=== PATIENT | female | born 1965 | race Caucasian/White ===

== ENCOUNTER 2019-10-15 15:30 | Outpatient (CLI) | payer BC, SELFPAY ==
--- NOTE | ~2019-10-15 | MM_ITS ---
EXAMINATION: MM screening susan BI w quin HISTORY: Screening mammogram TECHNIQUE: Craniocaudal and mediolateral oblique 3-D tomosynthesis images were obtained and synthetic 2-D images were generated. CAD analysis was submitted and interpreted. COMPARISON: 04/13/2018 diagnostic left digital mammogram and left Limited breast ultrasound 04/09/2018, 01/04/2017, 04/21/2015 lateral digital screening mammogram examinations BREAST PARENCHYMAL COMPOSITION: There are scattered areas of fibroglandular density. FINDINGS: There is no evidence of suspicious mass, calcification, or architectural distortion to sugg est malignancy in either breast. There has been no suspicious interval change. IMPRESSION: 1. No mammographic evidence of malignancy. 2. Recommend routine screening mammography in one year. BI-RADS Category 1: Negative Reviewed, dictated and finalized at location A. T CUTTER
== END 2019-10-15 15:31 | disposition home or self-care (01) ==
PROVIDERS: PCP Family Medicine; Visit Provider Obstetrics & Gynecology
DX: Z12.31 Encounter for screening mammogram for malignant neoplasm of breast (principal)
CPT/HCPCS: 77063; 77067

== ENCOUNTER → 2020-12-23 09:12 | Outpatient (CLI) | payer BC, SELFPAY ==
[2020-12-23 18:26] LABS: SARS-CoV-2 RNA PCR Negative
== END ==
PROVIDERS: PCP Internal Medicine; Visit Provider Internal Medicine
DX: Z20.822 Contact with and (suspected) exposure to COVID-19 (principal)
CPT/HCPCS: C9803; U0003; U0005

== ENCOUNTER 2021-01-15 12:42 | Outpatient (CLI) | payer BC, SELFPAY | END 2021-01-15 12:43 | disposition home or self-care (01) | LOC: ANHLAB 12:44 | PROVIDERS: PCP Internal Medicine; Visit Provider Internal Medicine | DX: Z86.16 Personal history of COVID-19 (principal) | CPT/HCPCS: 36415; 86769 ==

== ENCOUNTER 2021-06-23 14:58 | Outpatient (CLI) | payer BC, SELFPAY ==
--- NOTE | ~2021-06-23 | MM_ITS ---
EXAMINATION: MM screening susan BI w quin HISTORY: Screening mammogram TECHNIQUE: Craniocaudal and mediolateral oblique 3-D tomosynthesis images were obtained and synthetic 2-D images were generated. CAD analysis was submitted and interpreted. COMPARISON: bilateral digital screening mammogram 04/13/2018 diagnostic left mammogram and limited left breast ultrasound 04/09/2018 bilateral digital screening mammogram BREAST PARENCHYMAL COMPOSITION: There are scattered areas of fibroglandular density. FINDINGS: There is no evidence of suspicious mass, calcification, or architectural distortion to sugg est malignancy in either breast. There has been no suspicious interval change. IMPRESSION: 1. No mammographic evidence of malignancy. 2. Recommend routine screening mammography in one year. BI-RADS Category 1: Negative.. Reviewed, dictated and finalized at location A.
== END 2021-06-23 14:59 | disposition home or self-care (01) ==
LOC: ANHIMG 15:01
PROVIDERS: PCP Internal Medicine; Visit Provider Obstetrics & Gynecology
DX: Z12.31 Encounter for screening mammogram for malignant neoplasm of breast (principal)
CPT/HCPCS: 77063; 77067

== ENCOUNTER 2023-03-21 10:12 | Outpatient (CLI) | payer BC, SELFPAY ==
[2023-03-22 05:25] LABS: Free T4 Free Thyroxine 1.64 ng/mL (0.78-2.19); Vitamin D 25 Hydroxy 26.3 ng/mL
== END 2023-03-21 10:13 | disposition home or self-care (01) ==
LOC: ANHWCLAB 10:13
PROVIDERS: PCP Internal Medicine; Visit Provider Internal Medicine Endocrinology, Diabetes & Metabolism
DX: E03.9 Hypothyroidism, unspecified (principal); E55.9 Vitamin D deficiency, unspecified
CPT/HCPCS: 36415; 82306; 84439; 84443

== ENCOUNTER 2023-06-13 07:53 | Outpatient (CLI) | payer BC, SELFPAY ==
--- NOTE | ~2023-06-13 | MM_ITS ---
EXAMINATION: MM screening susan BI w quin HISTORY: Screening mammogram TECHNIQUE: Craniocaudal and mediolateral oblique 3-D tomosynthesis images were obtained and synthetic 2-D images were generated. CAD analysis was submitted and interpreted. COMPARISON: 06/23/2021, 10/15/2019 bilateral screening mammogram examinations BREAST PARENCHYMAL COMPOSITION: There are scattered areas of fibroglandular density. FINDINGS: There is no evidence of suspicious mass, calcification, or architectural distortion to sugg est malignancy in either breast. There has been no suspicious interval change. IMPRESSION: 1. No mammographic evidence of malignancy. 2. Recommend routine screening mammography in one year. BI-RADS Category 1: Negative Reviewed, dictated and finalized at location A.
== END 2023-06-13 07:54 | disposition home or self-care (01) ==
PROVIDERS: PCP Family Medicine; Visit Provider Obstetrics & Gynecology
DX: Z12.31 Encounter for screening mammogram for malignant neoplasm of breast (principal)
CPT/HCPCS: 77063; 77067

== ENCOUNTER 2023-06-26 15:30 | Outpatient (RCR) | payer BC, SELFPAY ==
--- NOTE | 2023-05-29 15:09 | OPREHPOC ---
Outpatient Therapy Plan of Care This is a Multidisciplinary Plan of Care that may contain components documented by all disciplines (PT, OT, and ST.) PT Problem 1 PT Problem #1 Knowledge Deficit PT Goal 1 Goal Pt to be IND with issued HEP Target Visit 8 PT Problem 2 PT Problem #2 Pain PT Goal 1 Goal Pt to report neck pain no greater than 3/10 in the last week Target Visit 8 PT Goal 2 Goal Pt to report 75% improvement in overall symptoms Target Visit 8 PT Problem 3 PT Problem #3 Impaired Strength PT Goal 1 Goal Pt to be able to lift her grandkids and clean her house without an increase in pain the next day. Target Visit 8 PT Goal 2 Goal Pt to be able to lift 5lb overhead without an increase in pain Target Visit 8 PT Problem 4 PT Problem #4 Impaired Range of Motion PT Goal 1 Goal Pt to increase jovany lateral flexion ROM to 30 deg Target Visit 8 PT Goal 2 Goal Pt to increase R rotation to 55 deg to be equal to the L side Target Visit 8
--- NOTE | 2023-05-29 15:09 | PTOPEVAL1 ---
Assessment and note entered by Karol Molina, PT, DPT Evaluation Information Assessment Status Evaluation Diagnosis L muscle strain Onset 8 months Subjective Information Pt states about 8 months ago she started to get a throbbing neck pain that goes up to her head and down into the front of her chest. She states it is more of a throbbing achy pain. She has been going to the chiropractor without any relief. 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 Reported Pain Level Pain Score 0: Self Report Assessment PT Clinical Summary Angela presents to therapy today for her initial evaluation with a diagnosis of a muscle strain. Today she demonstrates decreased active and passive cervical ROM jovany L>R d/t upper trap length restrictions. She demonstrates tenderness to palpation throughout the upper trap and serratus region. She demonstrates a forwards head with slightly rounded shoulders in sitting. Skilled therapy services are indicated to improve soft tissue mobility, to improve cervical ROM, to manage pain, and to return to PLOF. Plan of Care Interventions Electrical Stimulation,Hot Pack/Cold Pack,Manual Therapy,Neuro Re-education,Patient/Caregiver Educati,Therapeutic Activities,Therapeutic Exercise PT Services Indicated Yes Treatment Frequency and 2x/wk for 8 visits Duration These treatments will address the objective and functional deficits as defined above. The patient will be advanced safely and appropriately in order for the patient to progress towards his/her prior level of function. Additional exercises will be introduced and as well as a comprehensive home exercise program upon discharge, if needed, ?to ensure carryover of functional gains achieved in the clinic. This treatment plan has been reviewed and agreement upon by the patient.
--- NOTE | 2023-06-02 08:41 | PCPTNOTE ---
Patient called & cancelled scheduled appointment this date due to having to work.
--- NOTE | 2023-06-21 08:02 | PCPTNOTE ---
Patient canceled appointment June 20.
--- NOTE | 2023-06-26 15:41 | PTOPDC ---
Assessment and note entered by Karol Molina, PT, DPT Evaluation Information Assessment Status Discharge Diagnosis L muscle strain Onset 8 months Subjective Information Pt states her neck is feeling really good. She states she has no limitations and nothing that bothers her to do. Pt declines any headaches and has no trouble sleeping. Reported Pain Level Pain Score 0: Self Report Assessment PT Clinical Summary Angela presents to therapy today for her progress report following 6 visits of skilled therapy with a diagnosis of a muscle strain. Today she demonstrates improvements in her cervical ROM, but motions to the R are still slightly limited. She reports no limitations, no headaches, and no pain in the last week. She no longer requires skilled therapy and will be discharged at this time.
== END 2023-07-05 13:51 | disposition home or self-care (01) ==
LOC: ANHGOSHPT 15:30
PROVIDERS: PCP Family Medicine; Visit Provider Family Medicine
DX: S46.819A Strain of other muscles, fascia and tendons at shoulder and upper arm level, unspecified arm, initial encounter (principal)
CPT/HCPCS: 97110; 97140; 97161; 97530

== ENCOUNTER 2024-09-12 15:30 | Outpatient (RCR) | payer BC, SELFPAY ==
--- NOTE | 2024-07-31 10:15 | OPREHPOC ---
Outpatient Therapy Plan of Care This is a Multidisciplinary Plan of Care that may contain components documented by all disciplines (PT, OT, and ST.) PT Problem 1 PT Problem #1 Knowledge Deficit PT Goal 1 Goal / Goal Update Pt to be IND with issued HEP Target Visit 10 PT Problem 2 PT Problem #2 Pain PT Goal 1 Goal / Goal Update 1. Pt to report neck pain no greater than 3/10 in the last week. 2. Pt to report 75% improvement in overall symptoms. Target Visit 10 PT Problem 3 PT Problem #3 Impaired Range of Motion PT Goal 1 Goal / Goal Update 1. Pt to increase jovany cervical lateral flexion to 25 deg 2. Pt to increase jovany cervical rotation to 60 deg to improve ease with driving Target Visit 10
--- NOTE | 2024-07-31 10:16 | PTOPEVAL1 ---
Assessment and note entered by Karol Molina, PT, DPT Evaluation Information Assessment Status Evaluation Diagnosis L upper trap strain ICD-10 Condition Codes (PT) Cervicalgia M54.2 Subjective Information Pt states she has a chronic history of L shoulder and neck pain. 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 States her neck, shoulder, or ribs will pop out and she has to go to a chiropractor to realign this. States at times she will get a ringing sensation in her ears. Reported Pain Level Pain Score 4: Self Report Pain Score 4: Self Report Assessment PT Clinical Summary Pt presents to therapy today for her initial evaluation with a diagnosis of a L upper trap strain. Today she demonstrates decreased ROM in all planes of motion. She demosntates increased soft tissue density in her upper trap and into her suboccipitals. She also demonstrates decreased scapular stability with resistance and a forward and rounded posture. Skilled therapy services are indicated to address the deficits noted above, to manage pain, and to return to prior level of function. Plan of Care Interventions Electrical Stimulation,Hot Pack/Cold Pack,Manual Therapy,Neuro Re-education,Patient/Caregiver Educati,Therapeutic Activities,Therapeutic Exercise,Other Other Interventions dry needling PT Services Indicated Yes Treatment Frequency and 2x/wk for 10 visits Duration These treatments will address the objective and functional deficits as defined above. The patient will be advanced safely and appropriately in order for the patient to progress towards his/her prior level of function. Additional exercises will be introduced and as well as a comprehensive home exercise program upon discharge, if needed, ?to ensure carryover of functional gains achieved in the clinic. This treatment plan has been reviewed and agreement upon by the patient.
--- NOTE | 2024-09-12 16:13 | OPREHPOC ---
Outpatient Therapy Plan of Care This is a Multidisciplinary Plan of Care that may contain components documented by all disciplines (PT, OT, and ST.) PT Problem 1 PT Problem #1 Knowledge Deficit PT Goal 1 Goal / Goal Update Pt to be IND with issued HEP Target Visit 10 Progress Met PT Problem 2 PT Problem #2 Pain PT Goal 1 Goal / Goal Update 1. Pt to report neck pain no greater than 3/10 in the last week. 2. Pt to report 75% improvement in overall symptoms. 09/12/24: 1. progressing, 01/11 2. met, reports 80-90% improvement Target Visit 10 Progress Partially Met PT Problem 3 PT Problem #3 Impaired Range of Motion PT Goal 1 Goal / Goal Update 1. Pt to increase jovany cervical lateral flexion to 25 deg 2. Pt to increase jovany cervical rotation to 60 deg to improve ease with driving 09/12/24: 1-2. progressing Target Visit 10 Progress Partially Met
--- NOTE | 2024-09-12 16:14 | PTOPDC ---
Assessment and note entered by Karol Molina, PT, DPT Evaluation Information Assessment Status Discharge Diagnosis L upper trap strain ICD-10 Condition Codes (PT) Cervicalgia M54.2 Subjective Information Pt states she feels like she is doing a lot better , states her neck is not popping anymore and she is not getting any more ringing in the ears. States its worst it is an annoying throb in the back of her neck. She states her exercises seem to help with the pain. Reports her pain frequency and intensity has decreased, reports 80-90% improvement. Reported Pain Level Pain Score 0: Self Report Pain Score 0: Self Report Assessment PT Clinical Summary Pt has completed 7 visits of skilled therapy to treat her neck pain. Her neck, thoracic, and shoulder mobility has improved. She has met a majority of her therapy goals and no longer requires skilled services at this time. Her HEP was progressed. She will be d/c'ed at this time.
== END 2024-09-13 12:41 | disposition home or self-care (01) ==
LOC: ANHGOSHPT 15:30
PROVIDERS: PCP Family Medicine; Visit Provider Nurse Practitioner Family
DX: S46.812D Strain of other muscles, fascia and tendons at shoulder and upper arm level, left arm, subsequent encounter (principal)
CPT/HCPCS: 97014; 97110; 97140; 97161; 97530; G0283

== ENCOUNTER 2024-12-23 14:36 | Outpatient (CLI) | payer BC, SELFPAY ==
--- NOTE | ~2024-12-23 | MM_ITS ---
EXAMINATION: MM screening [facility] BI w quin HISTORY: Screening TECHNIQUE: Craniocaudal and mediolateral oblique 3-D tomosynthesis images were obtained and synthetic 2-D images were generated. CAD analysis was submitted and interpreted. COMPARISON: 06/13/2023 and dating back to 04/09/2018 BREAST PARENCHYMAL COMPOSITION: There are scattered areas of fibroglandular density. FINDINGS: Punctate calcifications are detected bilaterally, stable and benign in appearance. Stable parenchymal pattern without suspicious microcalcifications, architectural distortion, discrete masses or significant asymmetry. IMPRESSION: 1. No mammographic evidence of malignancy. 2. Recommend routine screening mammography in one year. BI-RADS Category 2: Benign finding(s). Reviewed, dictated and finalized at location A.
--- OUTSIDE RECORDS SUMMARY | 2024-12-23 16:33 | XMS_ITS | Encounter Summary ---
Author Organization [facility] Address [address] [place] [address] Care Team Providers Care Line Mechanic Name Role Phone Omi Jeffery MD Primary Care Provider [phone] Encounter Details Date Type Department Care Team (Late st Contact Info) Description 05/25/[address] 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 Received: 05/25/2022 04:14 PM Pathologist: Ana Toledo MD Specimen: Skin, left post parietal scalp 12:51 PM CDT DERMATOPATHOLOGY LABORATORY Final Diagnosis Specimen A. SKIN, left post parietal scalp: BENIGN VERRUCOUS KERATOSIS, INFLAMED (L82.1) 12:51 PM CDT DERMATOPATHOLOGY LABORATORY Clinical History R/O ISK, BCC,SCC 12:51 PM CDT DERMATOPATHOLOGY LABORATORY Gross Description Specimen A: Received is one formalin filled container labeled with the patient's name and designated left post parietal scalp. The specimen consists of a shave biopsy measuring 10x8x4 mm, bisected. Jar 0. 12:51 PM CDT DERMATOPATHOLOGY LABORATORY Microscopic Description Specimen A. SKIN, left post parietal scalp: Sections show hyperkeratosis, papillomatosis, hypergranulosis, and acanthosis. Inflammatory cells are present within the dermis. These histological findings can be seen in a verruca vulgaris or a seborrheic keratosis. 12:51 PM CDT DERMATOPATHOLOGY LABORATORY Disclaimer An external and internal positive and negative controls are appropriate for the histochemical, immunohistochemical and immunofluorescence stain(s) in this case (if any), except where stated explicitly. The performance characteristics of the stain(s) cited in this report were developed and its performance characteristic determined by the Dermatopathology Laboratory at [facility], directed by Dr. Srinivas Holguin. These tests need not be, and therefore are not, approved by the [place] Food and Drug Administration. The tests are used for clinical purposes. Billing Codes Specimen Charges Stain Charges 33049 1 2 12:51 PM CDT DERMATOPATHOLOGY LABORATORY Embedded Images 12:51 PM CDT DERMATOPATHOLOGY LABORATORY Pathology/Cytolog y TISSUE SPECIMEN FROM SKIN / Unknown 05/24/2022 05/25/2022 4:14 PM CDT us Tin Faulkner MD LAB - PATHOLOGY/CYTOLOGY ORD ERABLES Final Result DERMATOPATHOLOGY LABORATORY [facility] - Department of Dermatology [address], [address] [phone] documented in this encounter Visit Diagnoses Not on filedocumented in this encounter Care Teams Line Mechanic Relationship Specialty Start Date End Date Omi Jeffery MD [address] [place] [address] PCP - General 12/24/15 documented as of this encounter
--- OUTSIDE RECORDS SUMMARY | 2024-12-23 16:33 | XMS_ITS | Clinical Summary ---
Author Organization [facility] Address [address] [place] [address] Phone Care Team Providers Care Reservation Agent Name Role Phone Home Jean MD Primary Care Provider [phone] Allergies Active Allergy Reactions Criticality Noted Date Comments Aspirin Penicillins Medications Synthroid 112 mcg tablet Take 1 tablet (112 mcg total) by mouth neurocritical care physician before breakfast 3 Active EstroGel 1.25 gram/actuation topical gel 3 Active ergocalciferol, vitamin D2, (VITAMIN D2 ORAL) Take by mouth Active Active Problems Problem Noted Date Diagnosed Date Sore throat 11/01/2024 Assessment & Plan (11/01/2024 11:57 AM CLIENT BUSINESS MANAGER): States she had symptoms of runny nose, scratchy throat a few weeks ago. Never had any fevers, cough or chills. Mild sore throat with some postnasal drainage for the last few days. Sensation of ear fullness. Mild erythema on exam, no exudate. Prefers to avoid strep testing today. Discussed use of flonase nasal spray and acetaminophen as needed. Can use salt water gargles. Follow up if no improvement or if experiencing any new or worsening symptoms. Left ear pain 11/01/2024 Assessment & Plan (11/01/2024 11:57 AM CLIENT BUSINESS MANAGER): No abnormal findings on exam. See discussion above Annual physical exam 08/13/2024 Assessment & Plan (08/13/2024 3:14 PM CLIENT BUSINESS MANAGER): In regard to health maintenance, Colonoscopy referral placed Mammogram folows with SENIOR BUSINESS DEVELOPMENT ANALYST [employer] [facility] Influenza vaccine declines Shingrix vaccine recommended Eat a healthy diet: focus on lean meats and proteins, more fruits, vegetables and whole grains and low in sugars and fats. Limit red meat and avoid processed meat. Maintain a healthy weight; avoid being overweight. Aim for a normal body mass index (BMI) of 18.5-24.9. Help learning to eat healthier, we can set up appointment with die tester/screen printing machine operator. Have an active lifestyle, strive for 30 minutes of moderate exercise 5 times a week and strength or resistance training at least twice a week. Use broad-spectrum (UVA+UVB) sunscreen with SPF 30 or greater, is water resistant, limit time spent in the sun (10 am-4pm), wear hat, wear UV protective clothing, wear sunglasses. Never use a tanning bed. Skin that was irradiated may be more sensitive over your lifetime. Do not smoke or chew tobacco; participate in a smoking cessation program. Limit alcohol intake, 1 drink per day for a woman and 2 drinks per day for a man. Vitamin D deficiency 08/13/2024 Assessment & Plan (08/13/2024 3:25 PM CLIENT BUSINESS MANAGER): Reports stable. Following with Endocrinology. Compliant with supplement. Strain of left trapezius muscle 03/25/2024 Assessment & Plan (03/25/2024 3:01 PM CDT): Continue gentle stretching. Reviewed conservative measures. Will place referral to PT. Will monitor response. Bilateral impacted cerumen 03/25/2024 Assessment & Plan (03/25/2024 3:01 PM CDT): Canals cleared. Can try OTC Debrox. RTC for any concerns. BMI 25.0-25.9,adult 03/25/2024 Assessment & Plan (11/01/2024 11:57 AM CLIENT BUSINESS MANAGER): BMI appropriate for patient Hypothyroidism 01/18/2014 Overview (12/07/2016): HYPOTHYROIDISM NOS Assessment & Plan (08/13/2024 3:24 PM CLIENT BUSINESS MANAGER): Reports stable Following closely with endocrinology. Will continue to do so. 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/2016): NONTOX NODUL GOITER NOS Encounters Date Type Department Care Team Description 11/01/2024 11:30 AM CLIENT BUSINESS MANAGER [facility] Visit [facility] [address] [address] [place] Brooks, [place] Sore throat (Primary Dx); Left ear pain; BMI 25.0-25.9,adult from Last 3 Months Immunizations Immunization Administration Dates Next Due Influenza, Unspecified 11/01/2024(Deferr ed: Patient Refused),08/13/2024(Deferred: Patient Refused),06/04/2024(Deferred: Patient Refused),06/20/2023(Deferred: Patient Refused),06/04/2023(Deferred: Patient Refused),11/15/2022(Deferred: Patient Refused),06/04/2022(Deferred: Patient Refused),09/04/2021(Deferred: Patient Refused) Medical History Medical History Date Comments Disorder of thyroid Thyroid dise ase Family History Medical History Relation Name Comments Other Other No family histo ry of Diabetes mellitus; Thyroid disease Other Family histo ry of Thyroid disorder; Relation Name Status Comments Other Social History Tobacco Use Types Packs/Day Years Used Date Smoking Tobacco: Never Smokeless Tobacco: Never Tobacco Cessation:Counseling Given: Not Answered Alcohol Use Standard Drinks/Week Comments No 0 (1 standard drink = 0.6 oz pur e alcohol) PHQ-2 Answer Date Recorded PHQ-2 Total Score (If total score is 3 or more points, staff should administer the PHQ-9) 0 11/01/2024 Comments Unknown Sex and Gender Information Value Date Recorded Sex Assigned at Not on file Legal Sex Female 1:15 AM CLIENT BUSINESS MANAGER Gender Identity Not on file Sexual Orientation Not on file Obstetrics History Last Filed Vital Signs Vital Sign Reading Time Taken Comments Blood Pressure 110/78 11/01/2024 11:09 AM CLIENT BUSINESS MANAGER Pulse 105 11/01/2024 11:09 AM CLIENT BUSINESS MANAGER Temperature 36.8 C (98.2 F) 11/01/2024 11:09 AM CLIENT BUSINESS MANAGER Respiratory Rate 16 11/01/2024 11:09 AM CLIENT BUSINESS MANAGER Oxygen Saturation 98% 11/01/2024 11:09 AM CLIENT BUSINESS MANAGER Inhaled Oxygen Concentration - - Weight 78 kg (172 lb) 11/01/2024 11:09 AM CLIENT BUSINESS MANAGER Height 175.3 cm (5' 9.02 ) 11/01/2024 11:09 AM C Body Mass Index 25.39 11/01/2024 11:09 AM CLIENT BUSINESS MANAGER Plan of Treatment Health Maintenance Due Date Last Done Comments Breast Cancer Screening-Mammogram 1965 Cervical Cancer Screening 1965 Hepatitis C Screening 1964 DTaP/Tdap/Td Vaccine (1 - Tdap) 1975 Hepatitis B Screening 1982 Zoster Vaccine (1 of 2) 2014 Influenza Vaccine (#1) 2025 Postp oned from 05/05/2024 (Patient declined, but will receive in the future) Regular Well Visit/Exam 18-64 08/13/2025 08/13/2024 Depression Screening 11/01/2025 11/01/2024, 08/13/2024, 06/20/2023 Colon Cancer Screening-Colonoscopy 05/19/2027 05/19/2017 Pneumococcal vaccine <65 Aged Out No longer eligible based on patient's age to complete this topic Procedures Procedure Name Priority Date/Time Associated Diagnosis Comments COLONOSCOPY Routine 05/19/2017 7:45 AM CDT from Last 3 Months or Most Recently Relevant to Health Maintenance Results * Colonoscopy (05/19/2017 7:45 AM CDT) Anatomical Region Laterality Modality Other us Historical Provider ENDOSCOPY PROCEDURES Cornelia samayoa Result from Last 3 Months or Most Recently Relevant to Health Maintenance Insurance [facility] OOS Care Teams Reservation Agent Relationship Specialty Start Date End [place] [id number] PCP - General Family Medicine 06/20/23
--- OUTSIDE RECORDS SUMMARY | 2024-12-23 16:33 | XMS_ITS | Clinical Summary ---
Author Organization [facility] Address [address] [place] [address] Care Team Providers Care Cupola Man Name Role Phone Omi Jeffery MD Primary Care Provider [phone] Source Comments [facility] Location [employer],non-owned Affiliates and Associated Physician Practices is amultiple site organization consisting of ambulatory clinics and hospital sitesin [place], [place], [place]. This disclosure is being madepursuant to the Care Everywhere program and may not contain all information available regarding this patient. 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 Gender Identity Not on file Sexual Orientation Not on file Plan of Treatment Health Maintenance Due Date Last Done Comments COLOGUARD (AGES 45-75) - COL ON CA SCREENING 1964 COLON MONITORING 1964 COLONOSCOPY - COLON CA SCREENING 1964 CT COLONOGRAPHY - COLON CA SCREENING 1964 Colorectal Cancer Screening 1964 FIT - COLON CA SCREENING 1964 FLEX SIG - COLON CA SCREENING 1964 LIPID TESTING 1964 MAMMOGRAM 1964 PAP SMEAR 1964 HIV SCREENING 1979 HEPATITIS C SCREENING 09/25/1982 DTAP/TDAP/TD VACCINES (1 - Tdap) 1983 PNEUMOCOCCAL VACCINE 50+ (1 of 1 - PCV) 2014 ZOSTER VACCINE (1 of 2) 2014 COVID-19 VACCINE ( - 2023-2 5 season) 2024 DEPRESSION SCREENING 09/04/2024 INFLUENZA VACCINE (Season Ended) 2025 Respiratory Syncytial Virus (RSV) Vaccine Pt: or over 60 yrs (1 - 1-dose 75+ series) 2039 HEPATITIS B VACCINE Aged Out No longe r eligible based on patient's age to complete this topic HIB VACCINE Aged Out No longer eligi ble based on patient's age to complete this topic HPV VACCINE Aged Out No longer eligi ble based on patient's age to complete this topic MENINGOCOCCAL (Group B) VACC INE SHARED DECISION-MAKING Aged Out No longer eligibl e based on patient's age to complete this topic MENINGOCOCCAL GROUPS A/C/Y/W VACCINE Aged Out No longer eligible b ased on patient's age to complete this topic Insurance ANTHEM Care Teams Cupola Man Relationship Specialty Start Date End Date Omi Jeffery MD [address] [place] [address] PCP - General 12/24/15
--- OUTSIDE RECORDS SUMMARY | 2024-12-23 16:33 | XMS_ITS | Continuity of Care Document ---
Author Organization [facility] Address [address] [place] [address] Phone Care Team Providers Care Husker Operator Name Role Phone Dennis De DO Unavailable Unavailable Advance Directives Directive Yes / No Effective Date File Name No Information Encounters Encounter Description Practice Location Reason(s) For Visit Diagnoses Date Provider Providers Copied on Encounter [facility], [address], [place], [place], [id number], [place] tel:[phone] [facility] No Information [facility]ley. [address] [place], [address], [place]. tel: [phone] Family History Family Member Type Diagnosis Age At Onset No Information Payers Payer name Insurance type Covered libertarian ID Authoriza tion(s) [place] [id number] Social History Type Description Quantity Date Captured Comments Sex Female Smoking Status No Information Chief Complaint And Reason For Visit No Information Reason For Referral Reason For Referral No Information History Of Present Illness Encounter Date Complaint History Of Prese nt Illness No Information Functional Status Date Functional Assessmen t No Information Instructions Date Instruction Additional Infor mation No Information Assessments Type Assessment Date No Information Patient Care Teams Name Effective Dates (start - stop) Status Members No Information
--- OUTSIDE RECORDS SUMMARY | 2024-12-23 16:33 | XMS_ITS | Clinical Summary ---
Author Organization [employer] [facility] Address [address] [place] [address] Care Team Providers Care Cardiac Cath Lab Manager Name Role Phone Unavailable Primary Care Provider Unavailabl e Medications Synthroid 112 mcg tablet TAKE 1 TABLET BY MOUTH MONDAY THROUGH MONDAY AND 1.5 TABLETS ON MONDAY 30 Tablet 1 11/01/2022 3:57 PM SOFTBALL UMPIRE 3 Active Synthroid 112 mcg tablet TAKE 1 TABLET BY MOUTH MONDAY THROUGH MONDAY AND 1.5 TABLETS ON MONDAY 96 Tablet 3 11/05/2023 3:23 PM SOFTBALL UMPIRE 3 Active Cholecalciferol , Vitamin D3, (Replesta) 1,250 mcg (50,000 unit) Wafer CHEW AND SWALLOW 1 WAFER BY MOUTH ONCE WEEKLY. 14 Wafer 05/14/2023 11:49 AM CDT 3 Active Estradiol (EstroGel) 1.25 gram/actuation Gel in Metered-dose Pump APPLY ONE PUMP TOPICALLY DIRECTED 50 Gram 3 02/02/2024 9:07 AM CDT 3 Active Synthroid 112 mcg tablet TAKE 1 TABLET BY MOUTH MONDAY THROUGH MONDAY AND 1.5 TABLETS ON MONDAY 96 Tablet 3 11/28/2024 4:50 PM CDT 4 Active Estradiol (EstroGel) 1.25 gram/actuation Gel in Metered-dose Pump Apply one pump topically as directed 112.5 Gram 07/10/2024 5:43 PM SOFTBALL UMPIRE 4 Active EstroGel 1.25 gram/actuation Gel in Metered-dose Pump Apply 1 pump to skin once a day 37.5 Gram 3 11/28/2024 4:50 PM CDT 4 Active Estradiol (EstroGel) 1.25 gram/actuation Gel in Metered-dose Pump Apply 1 pump to skin once a day 37.5 Gram 3 4 Active tobramycin-dexA METHasone (TOBRADEX) 0.3-0.1 % suspension ADMINISTER 1 DROP IN THE LEFT EYE 4 TIMES PER DAY FOR 1 WEEK 5 mL 12/05/2024 4:45 PM CDT 5 Active Encounters Date Type Department Care Team Description 12/03/2024 External Device Data [facility] ABSTRACTION Provider, Abstract 11/20/2024 External Device Data [facility] ABSTRACTION Provider, Abstract 11/12/2024 External Device Data [facility] ABSTRACTION Provider, Abstract 11/12/2024 External Device Data [facility] ABSTRACTION Provider, Abstract 11/11/2024 External Device Data [facility] ABSTRACTION Provider, Abstract 11/09/2024 External Device Data [facility] ABSTRACTION Provider, Abstract 11/08/2024 External Device Data [facility] ABSTRACTION Provider, Abstract 11/06/2024 External Device Data ST[facility] ABSTRACTION Provider, Abstract 10/22/2024 External Device Data [facility] ABSTRACTION Provider, Abstract 09/25/2024 External Device Data [facility] ABSTRACTION Provider, Abstract 09/25/2024 External Device Data ST[facility] ABSTRACTION Provider, Abstract from Last 3 Months Social History Tobacco Use Types Packs/Day Years Used Date Smoking Tobacco: Never Assessed Comments Unknown Sex and Gender Information Value Date Recorded Sex Assigned at Not on file Legal Sex Female 8:42 AM SOFTBALL UMPIRE Gender Identity Not on file Sexual Orientation Not on file Plan of Treatment Health Maintenance Due Date Last Done Comments DTAP/TDAP/TD VACCINES (1 - Tdap) 1983 HPV/Cotest (21-29) 1985 CERVICAL CANCER SCREENING 1994 HPV/Cotest (30-65) 1994 PAP SMEAR 1994 BREAST CANCER SCREENING 2004 COLORECTAL SCREENING 2009 Colorectal Cancer Screening 2009 FIT-DNA Q 3 years 2009 FIT/FOBT Q 1 year 2009 Flex Sig/CT Colonography Q 5 years 2009 ZOSTER VACCINE (1 of 2) 2014 INFLUENZA VACCINE (#1) 2024 RSV VACCINE (60+ or ) (1 - 1-dose 75+ series) 2039 HEPATITIS B VACCINES Aged Out No long er eligible based on patient's age to complete this topic Insurance RX [employer] Commercial RX [employer] (INTERNAL) [facility]
--- OUTSIDE RECORDS SUMMARY | 2024-12-23 16:33 | XMS_ITS | Referral Summary ---
Author Organization [facility] Address [address] [place] [address] Phone Care Team Providers Care Hypercil Core Transformer Assembler Name Role Phone Home Jean MD Primary Care Provider [phone] Encounters Date Type Department Care Team Description 11/01/2024 11:30 AM COOK MORNING Office Visit [facility] [address] [place] [address] Sandy Brooks, AYDEN Sore throat (Primary Dx); Left ear pain; BMI 25.0-25.9,adult from Last 3 Months Allergies Active Allergy Reactions Criticality Noted Date Comments Aspirin Penicillins Medications Synthroid 112 mcg tablet Take 1 tablet (112 mcg total) by mouth washing machine striper before breakfast 3 Active EstroGel 1.25 gram/actuation topical gel 3 Active ergocalciferol, vitamin D2, (VITAMIN D2 ORAL) Take by mouth Active Active Problems Problem Noted Date Diagnosed Date Sore throat 11/01/2024 Assessment & Plan (11/01/2024 11:57 AM COOK MORNING): States she had symptoms of runny nose, [...] 11/01/2024 Assessment & Plan (11/01/2024 11:57 AM COOK MORNING): No abnormal findings on exam. See discussion above Annual physical exam 08/13/2024 Assessment & Plan (08/13/2024 3:14 PM COOK MORNING): In regard to health maintenance, Colonoscopy referral placed Mammogram folows with MARKET MASTER [employer] hyst Influenza vaccine declines Shingrix vaccine [...] healthier, we can set up appointment with vp clinical/crop research scientist. Have an active lifestyle, strive for 30 [...] 08/13/2024 Assessment & Plan (08/13/2024 3:25 PM COOK MORNING): Reports stable. Following with Endocrinology. Compliant with [...] 03/25/2024 Assessment & Plan (11/01/2024 11:57 AM COOK MORNING): BMI appropriate for patient Hypothyroidism 01/18/2014 Overview (12/07/2016): HYPOTHYROIDISM NOS Assessment & Plan (08/13/2024 3:24 PM COOK MORNING): Reports stable Following closely with endocrinology. Will continue to do so. 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/2016): NONTOX NODUL GOITER NOS Immunizations Immunization Administration Dates Next Due Influenza, Unspecified 11/01/2024(Deferr ed: Patient Refused),08/13/2024(Deferred: Patient Refused),06/04/2024(Deferred: Patient Refused),06/20/2023(Deferred: Patient Refused),06/04/2023(Deferred: Patient Refused),11/15/2022(Deferred: Patient Refused),06/04/2022(Deferred: Patient Refused),09/04/2021(Deferred: Patient Refused) Social History Tobacco Use Types Packs/Day Years [...] on file Legal Sex Female 1:15 AM COOK MORNING Gender Identity Not on file Sexual Orientation Not on file Last Filed Vital Signs Vital Sign Reading Time Taken Comments Blood Pressure 110/78 11/01/2024 11:09 AM COOK MORNING Pulse 105 11/01/2024 11:09 AM COOK MORNING Temperature 36.8 C (98.2 F) 11/01/2024 11:09 AM COOK MORNING Respiratory Rate 16 11/01/2024 11:09 AM COOK MORNING Oxygen Saturation 98% 11/01/2024 11:09 AM COOK MORNING Inhaled Oxygen Concentration - - Weight 78 kg (172 lb) 11/01/2024 11:09 AM COOK MORNING Height 175.3 cm (5' 9.02 ) 11/01/2024 11:09 AM Julio REINA Body Mass Index 25.39 11/01/2024 11:09 AM COOK MORNING Plan of Treatment Not on file Procedures Procedure Name Priority Date/Time Associated Diagnosis Comments COLONOSCOPY Routine 05/19/2017 7:45 AM CDT from Last 3 Months or Most Recently Relevant to Health Maintenance Results * Colonoscopy (05/19/2017 7:45 AM CDT) Anatomical Region Laterality Modality Other us Historical Provider ENDOSCOPY PROCEDURES Cornelia l Result from Last 3 Months or Most Recently Relevant to Health Maintenance Insurance [employer] [place] [employer] [place] [employer] CHO[employer] OOS Care Teams Hypercil Core Transformer Assembler Relationship Specialty Start Date End Date Home Jean MD [address] [place] [address] PCP - General Family Medicine 06/20/23
== END 2024-12-23 14:37 | disposition home or self-care (01) ==
LOC: ANHIMG 14:38
PROVIDERS: PCP Family Medicine; Visit Provider Obstetrics & Gynecology
DX: Z12.31 Encounter for screening mammogram for malignant neoplasm of breast (principal)
CPT/HCPCS: 77063; 77067